=== PATIENT | female | born 1960 | race Caucasian/White ===

== ENCOUNTER 2024-07-30 12:50 | Inpatient (IN) | payer OTHER, MEDICAID ==
[~2024-07-30] VITALS: Ht 157.5 cm; Wt 94.9 kg
[~2024-07-30 12:50] MED LIST: DIVA500T13 PO; DULO1CAP6 PO; FURO20TA4 PO; GABA-339 PO; GABA800T97 PO; HYDR-4902 PO; MUPI2OIN2 EX; MUPI2OIN2 TOP; QUET400T13 PO; TEMA30CA PO
--- NOTE | 2024-07-30 13:10 | ECG ---
[facility] Test Date: 2024-07-30 Test Time: 13:00:01 Pat Name: MARGARITO HUMPHRIES Department: er Room: Gender: F Clinical Field Specialist: gp : 1960 Requested By: YADY GLASS Order Number: [id number] Reading MD: Jevon Velasquez Measurements Intervals [place] Rate: 98 P: 39 [place]: 122 QRS: 52 QRSD: 95 T: 117 QT: 376 QTc: 481 Interpretive Statements Sinus rhythm Low voltage, precordial leads Borderline repolarization abnormality Baseline wander in lead(s) II,III,aVF,V1,V2,V5 Electronically Signed On 07-30-2024 17:11:43 PDT by Jevon Velasquez Please click the below link to view image of tracing.
--- NOTE | 2024-07-30 13:48 | ED.PDOC ---
HPI (NEURO) HPI Comments 63-year-old female with a history of TIA, hypertension, diabetes brought in by family for evaluation of slurred speech and difficulty with word finding since around 2:30 a.m. today. Family states they noted that the patient has had hand tremors, chest discomfort and difficulty breathing, associated with a mild h eadache. Patient is actively having difficulty with speech and word finding, so history is limited from the patient. Family states the patient is normally not dysarthric and is ambulatory. Today, the patient has been feeling too weak to ambulate. Chief Complaint: General Weakness Time Seen by MD: 13:20 Reviewed Notes: Nurses Notes, Medications, Allergies Information Source: Patient, Relative Mode of Arrival: Wheelchair Severity: Moderate Dizziness/Weakness Severity: Unable to do activities Headache Severity: Moderate Timing: Hours Duration: Since onset, Hours Prehospital treatment: None Headache Quality: Aching Headache Location: Generalized Weakness Location: (R) Arm, (L) Arm Onset: At rest Circumstances: Spontaneous Symptoms: Weakness, Difficult speech, Change of vision Before: Normal During: LOC After: Headache History of: TIA Associated Signs and Symptoms: Headache, Chest Pain, Weakness, Blurred Vision Past Medical History PAST MEDICAL HISTORY: DM, HTN, TIA Surgical History (Other): Cosmetic Sx GENERAL SUPERINTENDENT History: No Pertinent GENERAL SUPERINTENDENT History Family History Family History: Reviewed,noncontributory to illness Social History Smoker: Non-Smoker Alcohol: Denies ETOH Use Drugs: Denies Drug Use Lives In: Home Constitutional: denies: chills, diaphoresis, fatigue, fever, malaise, sweats, weakness, others EENTM: reports: blurred vision; denies: double vision, ear bleeding, ear discharge, ear drainage, ear pain, ear ringing, eye pain, eye redness, hearing loss, mouth pain, mouth swelling, nasal discharge, nose bleeding, nose lisa estion, nose pain, photophobia, tearing, throat pain, throat swelling, voice changes, others Respiratory: reports: cough, wheezing; denies: hemoptysis, orthopnea, SOB at rest, shortness of breath, SOB with excertion, stridor, others Cardiovascular: reports: chest pain; denies: dizzy spells, diaphoresis, Dyspnea on exertion, edema, irregular heart beat, left arm pain, lightheadedness, palpitations, PND, syncope, others Gastrointestinal: denies: abdomen distended, abdominal pain, blood streaked bowels, constipated, diarrhea, dysphagia, difficulty swallowing, hematemesis, melena, nausea, poor appetite, poor fluid intake, rectal bleeding, rectal pain, vomiting, others Genitourinary: denies: abnormal vagina bleeding, burning, dyspareunia, dysuria, flank pain, frequency, hematuria, incontinence, pain, , vagina discharge, urgency, others Neurological: reports: headache, speech problems, weakness; denies: dizziness, fainting, left sided numbness, left sided weakness, numbness, paresthesia, pre- existing deficit, right sided numbness, right sided weakness, seizure, tingling, tremors, others Musculoskeletal: denies: back pain, gout, joint pain, joint swelling, muscle pain, muscle stiffness, neck pain, others Integumetry: denies: bruises, change in color, change in hair/nails, dryness, laceration, lesions, lumps, rash, wounds, others Allergic/Immunocompromised: denies: Difficulty Healing, Frequent Infections, Hives, Itching, others Hematologic/Lymphatic: denies: anemia, blood clots, easy bleeding, easy bruising, swollen glands, others Endocrine: denies: excessive hunger, excessive sweating, excessive thirst, excessive urination, flushing, intolerance to cold, intolerance to heat, unexplained weight gain, unexplained weight loss, others Psychiatric: denies: anxiety, bipolar disorder, depression, hopeless, panic disorder, schizophrenia, sleepless, suicidal, others All Other Systems: Reviewed and Negative Physical Exam General Appearance: No Apparent Distress, Obese HEENT: PERRL/EOMI, Other (No facial asymmetry.) Neck: Full Range of Motion, Normal Inspection Respiratory: Decreased Breath Sounds, No Accessory Muscle Use, Respiratory Distress (Mild tachypnea) Cardiovascular: No Edema, No JVD, Regular Rate/Rhythm Breast Exam: Deferred Gastrointestinal: Non Tender, Soft Genitalia: Deferred Pelvic: Deferred Rectal: Deferred Extremities: Normal inspection, Normal range of motion, Non-tender, No pedal edema Neurologic: Alert (Oriented x4), No Motor Deficits, Speech Problem (Dysarthria, difficulty with word finding) Cerebellar Function: NOT DONE Reflexes: NOT DONE Skin: Dry, Normal Color, Warm Lymphatic: NOT DONE EKG EKG : Comments Sinus rhythm, rate 98, normal IL and QRS interval, QTC 481, normal axis, normal QRS, nonspecific T change. Was a procedure done? Was a procedure done?: No Differential Diagnosis (SZ) Seizure: CVA/TIA, Hypocalcemia, Hypoglycemia, Hyponatremia, Hypoxemia, Idiopathic, Mass Lesion, Encephalopathy CVA: Davis's Palsy, Electrolyte Imbalance General Weakness: Dysrhythmia, Myocardial infarction Headache: Migraine, Epidural Hemorrhage, Intracerebral Hemorrhage, Subarachnoid Hemorrhage, Subdural Hemorrhage, Meningitis X-Ray, Labs, Meds, VS Vital Signs Date Time Temp Pulse Resp B/P (MAP) Pulse Ox O2 Delivery O2 Flow Rate FiO2 07/30/24 22:00 98.6 79 33 118/68 (85) 93 98.6 07/30/24 19:31 98.2 78 33 100/86 (91) 92 98.2 07/30/24 17:06 79 32 102/62 (75) 91 07/30/24 15:59 84 07/30/24 15:46 86 14 98 Nasal Cannula* 4 36 07/30/24 14:55 95 16 95 Non-Rebreather 10.0 07/30/24 14:55 97.6 95 16 139/70 (93) 61 97.6 07/30/24 14:52 19 95 Non-Rebreather 10 N/A 07/30/24 14:02 97.4 100 24 106/66 (79) 100 97.4 07/30/24 13:00 98 Lab Test 07/30/24 16:59 07/30/24 15:30 07/30/24 15:13 07/30/24 14:09 Range/Units Lactic Acid Level 1.2 0.4-2.0 mmol/L Troponin I High Sensitivity 120 *H 157 *H </=34 ng/L Blood Gas Specimen Type Arterial Blood Gas Sample Site Right radial Blood Gas Patient Temperature 37.0 Arterial Blood Date Drawn [id number] Arterial Blood pH 7.386 7.350-7.450 Arterial Blood Partial Pressure CO2 38.5 32.0-45.0 mmHg Arterial Blood Partial Pressure O2 80.2 L 83.0-108.0 mmHg Arterial Blood HCO3 22.6 21.0-28.0 mmol/L Arterial Blood Oxygen Saturation 94.6 94.0-98.0 % Arterial Blood Base Excess -2.1 L -2.0-3.0 mmol/L Arterial Blood Oxyhemoglobin 93.2 L 94.0-98.0 % Arterial Blood Carboxyhemoglobin 1.0 0.5-1.5 % Arterial Blood Methemoglobin 0.5 0.0-1.5 % Bernardo Test Yes Blood Gas Total Hemoglobin 14.90 12.0-16.0 g/dL Blood Gas Modality Mask - nrb FiO2 % 80.0 White Blood Count 19.1 H 4.4-10.8 10^3/uL Red Blood Count 4.75 4.0-5.20 10^6/uL Hemoglobin 14.1 12.2-16.2 g/dL Hematocrit 42.2 36.0-46.0 % Mean Corpuscular Volume 88.9 80.0-100.0 fL Mean Corpuscular Hemoglobin 29.7 28.0-32.0 pg Mean Corpuscular Hemoglobin Concent 33.4 32.0-36.0 g/dL Red Cell Distribution Width 15.5 H 11.8-14.3 % Platelet Count 352 140-450 10^3/uL Mean Platelet Volume 7.7 6.9-10.8 fL Neutrophils (%) (Auto) 37.0-80.0 % Lymphocytes (%) (Auto) 10.0-50.0 % Monocytes (%) (Auto) 0.0-12.0 % Basophils (%) (Auto) 0.0-2.0 % Neutrophils # (Auto) 1.6-8.6 10 ^3/uL Lymphocytes # (Auto) 0.4-5.4 10 ^3/uL Monocytes # (Auto) 0-1.3 10 ^3/uL Differential Total Cells Counted 100.0 100 Neutrophils % (Manual) 66 37.0-80.0 Band Neutrophils % (Manual) 12 Lymphocytes % (Manual) 14 10.0-50.0 Monocytes % (Manual) 8 0-12 Eosinophils % (Manual) 0 0-7 Basophils % (Manual) 0 0.0-2.0 Metamyelocytes % (manual) 0 Myelocytes % (Manual) 0 Promyelocytes % (Manual) 0 Blast Cells % (Manual) 0 Reactive Lymphocytes 0 Platelet Estimate Adequate Sodium Level 134 L 136-145 mmol/L Potassium Level 3.9 3.5-5.1 mmol/L Chloride Level 101 98-107 mmol/L Carbon Dioxide Level 26 20-31 mmol/L Anion Gap 7 5-15 Blood Urea Nitrogen 24 H 9-23 mg/dL Creatinine 1.56 H 0.550-1.02 mg/dL Glomerular Filtration Rate Calc 38 >90 mL/min BUN/Creatinine Ratio 15.4 10.0-20.0 Serum Glucose 135 H 74-106 mg/dL Calcium Level 9.6 8.7-10.4 mg/dL B-Type Natriuretic Peptide 266.24 0-100 pg/mL Current Medications Medications (Trade) Dose Ordered Sig/Rashard Route Start Time Stop Time Status Last Admin Acetaminophen (Tylenol Tablet Or Capsule) 1,000 mg ONCE ONCE PO 07/30/24 14:00 07/30/24 14:01 DC 07/30/24 14:22 Albuterol (Ventolin Medneb) 5 mg ONCE ONCE NEB 07/30/24 14:45 07/30/24 14:46 DC 07/30/24 14:52 Ipratropium [place] (Atrovent Medneb) 0.5 mg ONCE ONCE NEB 07/30/24 14:45 07/30/24 14:46 DC 07/30/24 14:52 Aspirin 325 mg ONCE ONCE PO 07/30/24 21:15 07/30/24 21:28 DC 07/30/24 22:03 PROCEDURE(s): HWOCT - HEAD WITHOUT CONTRAST REASON: dysarthria weakness ORDER NUMBER(s): [id number], ACCESSION NUMBER(s): [id number] EXAM: CT HEAD WITHOUT CONTRAST INDICATION: dysarthria weakness TECHNIQUE: CT of the head without intravenous contrast. Radiation Dose Information: CT Dose: CTDI volume is 65.38 mGy. Dose-length product is 1288.23 mGy*cm The dose indicators for CT are the volume Computed Tomography (CT) Dose Index (CTDIvol) and the Dose Length Product (DLP), and are measured in units of mGy and mGy-cm, respectively. These indicators are not patient dose, but values generated from the CT scanner acquisition factors. The report includes radiation exposure data for exposures received during this examination. COMPARISON: None FINDINGS: There is no evidence of acute intracranial hemorrhage, extra-axial collection, mass effect, midline shift, herniation or hydrocephalus. 6-7 mm low-density area in the external capsule on the right consistent with old lacunar infarct The ventricles, sulci and cisterns are age appropriate. The kim-white differentiation is intact. Patchy periventricular and subcortical white matter hypoattenuation is nonspecific but may be related to small vessel ischemic disease. The visualized paranasal sinuses and mastoid air cells are clear. The surrounding soft tissues and osseous structures are unremarkable. IMPRESSION: 1. No acute intracranial hemorrhage 2. 6 mm area of decreased attenuation right external capsule consistent with old lacunar infarct. No prior studies for comparison 3. No territorial ischemia noted. EDURE(s): CXRP - CHEST PORTABLE REASON: dysarthria, gen weak ORDER NUMBER(s): [id number], ACCESSION NUMBER(s): [id number] EXAM: XY CHEST PORTABLE Indication: dysarthria, gen weak Technique: Single frontal view of the chest was obtained Comparison: None FINDINGS: Lines and Tubes: None Lungs: Diffuse interstitial opacities Pleura: No effusion. No pneumothorax. Cardiomediastinal contours: Unremarkable Bones: No acute osseous abnormality. IMPRESSION: Diffuse interstitial opacities may reflect atypical infection or pulmonary edema. X-Ray, Labs, Meds, VS Comment 63-year-old female with a history of TIAs, hypertension and diabetes brought in by family for evaluation of dysarthria and difficulty with word finding, associated with generalized weakness Vitals remarkable for respiratory rate 32, oxygen saturation 91% on room air Exam remarkable for dysarthria, difficulty with word finding, tachypnea and diminished breath sounds Rhythm strip independently interpreted by me: Sinus rhythm, rate 98, no ectopy. CT head IMPRESSION: 1. No acute intracranial hemorrhage 2. 6 mm area of decreased attenuation right external capsule consistent with old lacunar infarct. No prior studies for comparison 3. No territorial ischemia noted. Chest x-ray IMPRESSION: Diffuse interstitial opacities may reflect atypical infection or pulmonary edema. CBC remarkable for WBC 19.1, metabolic panel remarkable for sodium 134, BNP 266.24, troponins 157 and 120 Patient treated with the following in the ED: Aspirin 325 mg p.o., albuterol 5 mg with Atrovent 0.5 mg nebulized, Tylenol 1 g p.o. On re-evaluation, respiratory status has improved and patient is saturating 94% on 3 L nasal cannula. Plan is to admit the patient for brain MRI, neuro evaluation, Cardiology evaluation and respiratory support as needed Time of 1ST Reevaluation: 13:50 Reevaluation 1ST: Unchanged Patient Education/Counseling: Diagnosis, Treatment, Prognosis Family Education/Counseling: Diagnosis, Treatment, Prognosis Departure 1 Departure Time of Disposition: 16:30 Impression: Primary Impression: CVA (cerebral vascular accident) Qualified Codes: I63.9 - Cerebral infarction, unspecified Additional Impressions: Non-STEMI (non-ST elevated myocardial infarction) Acute hypoxic respiratory failure Disposition: ADMITTED INPATIENT Admit to: [facility] Condition: Guarded Critical Care Note Critical Care Time?: No Stability Stability form required: No Heart Score Heart Score: Heart Score Response (Comments) Value History Slightly Suspicious 0 EKG Repolarization Disturb 1 Age 45-64 1 Risk Factors 1 or 2 risk factors 1 Troponin 1-2 x's Normal limit 1 Total 4 I personally scribed for YADY SALMERON MD ([email or web address]) on 07/30/24 at 13:48. Electronically submitted by Jorge Luis Rodriguez ([employer]). I personally scribed for YADY SALMERON MD ([email or web address]) on 07/30/24 at 17:46. Electronically submitted by Jorge Luis Rodriguez ([employer]). YADY SALMERON MD Jul 30, 2024 13:48
[2024-07-30 14:21] LABS: Hematocrit 42.2 % (36.0-46.0); Hemoglobin 14.1 g/dL (12.2-16.2); Mean Corpuscular Hemoglobin 29.7 pg (28.0-32.0); Mean Corpuscular Hgb Conc. 33.4 g/dL (32.0-36.0); Mean Corpuscular Volume 88.9 fL (80.0-100.0); Platelet Count (auto) 352 10^3/uL (140-450); Red Blood Cells 4.75 10^6/uL (4.0-5.20); Red Cell Distribution Width 15.5 % (11.8-14.3); White Blood Cell 19.1 10^3/uL (4.4-10.8)
[2024-07-30] MEDS: ACETAMINOPHEN 500 MG TAB or CAP PO ONE (14:22)
[2024-07-30 14:24] LABS: Basophils % (manual) 0 (0.0-2.0); Blast Cells 0; Eosinophils % (manual) 0 (0-7); Metamyelocytes % 0; Myelocytes % 0; Promyelocytes % 0; Reactive Lymphocytes 0
--- NOTE | 2024-07-30 14:32 | DVH ---
EXAM: XY CHEST PORTABLE Indication: dysarthria, gen weak Technique: Single frontal view of the chest was obtained Comparison: None FINDINGS: Lines and Tubes: None Lungs: Diffuse interstitial opacities Pleura: No effusion. No pneumothorax. Cardiomediastinal contours: Unremarkable Bones: No acute osseous abnormality. IMPRESSION: Diffuse interstitial opacities may reflect atypical infection or pulmonary edema.
[2024-07-30 14:33] LABS: Chloride 101 mmol/L (98-107); Potassium 3.9 mmol/L (3.5-5.1)
[2024-07-30 14:34] LABS: Anion Gap 7 (5-15); Carbon Dioxide 26 mmol/L (20-31)
[2024-07-30 14:35] LABS: Calcium 9.6 mg/dL (8.7-10.4); Sodium 134 mmol/L (136-145)
--- NOTE | 2024-07-30 14:39 | DVH ---
EXAM: CT HEAD WITHOUT CONTRAST INDICATION: dysarthria weakness TECHNIQUE: CT of the head without intravenous contrast. Radiation Dose Information: CT Dose: CTDI volume is 65.38 mGy. Dose-length product is 1288.23 mGy*cm The dose indicators for CT are the volume Computed Tomography (CT) Dose Index (CTDIvol) and the Dose Length Product (DLP), and are measured in units of mGy and mGy-cm, respectively. These indicators are not patient dose, but values generated from the CT scanner acquisition factors. The report includes radiation exposure data for exposures received during this examination. COMPARISON: None FINDINGS: There is no evidence of acute intracranial hemorrhage, extra-axial collection, mass effect, midline s hift, herniation or hydrocephalus. 6-7 mm low-density area in the external capsule on the right consistent with old lacunar infarct The ventricles, sulci and cisterns are age appropriate. The kim-white differentiation is intact. Patchy periventricular and subcortical white matter hypoattenuation is nonspecific but may be related to small vessel ischemic disease. The visualized paranasal sinuses and mastoid air cells are clear. The surrounding soft tissues and osseous structures are unremarkable. IMPRESSION: 1. No acute intracranial hemorrhage 2. 6 mm area of decreased attenuation right external capsule consistent with old lacunar infarct. No prior studies for comparison 3. No territorial ischemia noted.
[2024-07-30 14:40] LABS: BUN/Creatinine Ratio 15.4 (10.0-20.0); Blood Urea Nitrogen 24 mg/dL (9-23); Glucose 135 mg/dL (74-106)
[2024-07-30] MEDS: ALBUTEROL SULF 2.5 MG/0.5ML(0.5%) NEB SOLN NEB ONE (14:52)
[2024-07-30] MEDS: IPRATROPIUM BROM 0.5 MG/2.5ML INH SOL NEB ONE (14:52)
[2024-07-30 15:01] LABS: Band Neutrophils % (manual) 12; Lymphocytes % (manual) 14 (10.0-50.0); Monocytes % (manual) 8 (0-12)
[2024-07-30 15:02] LABS: Platelet Estimate Adequate
[2024-07-30 15:24] LABS: Base Excess -2.1 mmol/L (-2.0-3.0)
[2024-07-30 15:46] VITALS: PULSE 86; RESP 14; O2SAT 98
[2024-07-30] MEDS: ASPirin 325 MG TAB PO ONE (22:03)
--- NOTE | 2024-07-30 22:32 | DVHHPRES ---
History of Present Illness Resident Creating Document: PATO ROBLERO RESIDENT History of Present Illness Ms Alvarez is a 63-year-old female with PMHx of hypertension, diabetes mellitus type 2, TIA, ? History of cva who presented to the ER with a chief complaint of slurred speech, shortness of breath and cough. Patient is A&O x3, with slurred speech and is taking time to respond to questions. During my evaluation, patient is on a rebreather mask. No family available at bedside. Per chart review, patient has been experiencing slurred speech and difficulty with word finding which started around 2:30 in the morning of 07/30. Patient has been experiencing shortness of breaths associated with cough and pleuritic chest pain. She has smoked a pack a day for the past 40 years. She is experiencing difficulty with fine motor activities such as apraxia and agraphia, patient could not write has been him or draw clock. On arrival to the ER, patient was tachypneic and required oxygen supplementation via non-rebreather mask during my evaluation patient was afebrile, normotensive, tachypneic 30 per minute and saturating 98 on 8 L non-rebreather mask. Head CT was completed which showed 6 mm right external capsule old lacunar infarct. Chest x-ray shows bilateral opacities. Troponin downtrending 157, 120. Past medical history: Hypertension, diabetes mellitus type 2, TIA, questionable history of CVA Social history: Lives with dad and ex-. Smokes a pack a day for the past 40 years, drinks socially, denies illicit drug use Patient seen and examined in the ER. Patient has slurred speech. Patient is able to read without difficulty. Can not draw clock or write her name. Review of Systems Respiratory: Cough, Shortness of breath, SOB with excertion, Pleuritic Pain Neurological: Change in speech Allergies: Coded Allergies: NO KNOWN ALLERGIES (Unverified , 07/30/24) Exam Vital Signs Vital Signs Date Time Temp Pulse Resp B/P (MAP) Pulse Ox O2 Delivery O2 Flow Rate FiO2 07/30/24 19:31 98.2 78 33 100/86 (91) 92 98.2 07/30/24 15:46 Nasal Cannula* 4 36 Exam Obese female patient lying in bed, in no acute distress. Patient has slurred speech. Patient is able to read without difficulty. Can not draw clock or write her name. General: Obese, afebrile, palor, mucosae are moist Cardiovascular: Regular S1 and S2. No murmurs, gallops or rubs. No JVD elevation. 2+ pitting edema bilaterally. Palpable chest tenderness. Respiratory: Saturating 98 on 8 L non-rebreather. Inspiratory crackles and expiratory wheezing heard on auscultation. Abdomen: Soft, tender, nondistended, normoactive bowel sounds, no rebound tenderness, no organomegaly, no masses Genitourinary: Deferred MSK/skin: Mobilizes 4 limbs. Skin is dry and warm Neurological: No motor, no sensitive deficits, normal speech. Pupils are isocoric and reactive. Psych/Mental Status: A/Ox3 Labs/Xrays Labs Test 07/30/24 16:59 07/30/24 15:30 07/30/24 15:13 07/30/24 14:09 Range/Units Lactic Acid Level 1.2 0.4-2.0 mmol/L Troponin I High Sensitivity 120 *H </=34 ng/L Blood Gas Specimen Type Arterial Blood Gas Sample Site Right radial Blood Gas Patient Temperature 37.0 Arterial Blood Date Drawn [id number] Arterial Blood pH 7.386 7.350-7.450 Arterial Blood Partial Pressure CO2 38.5 32.0-45.0 mmHg Arterial Blood Partial Pressure O2 80.2 L 83.0-108.0 mmHg Arterial Blood HCO3 22.6 21.0-28.0 mmol/L Arterial Blood Oxygen Saturation 94.6 94.0-98.0 % Arterial Blood Base Excess -2.1 L -2.0-3.0 mmol/L Arterial Blood Oxyhemoglobin 93.2 L 94.0-98.0 % Arterial Blood Carboxyhemoglobin 1.0 0.5-1.5 % Arterial Blood Methemoglobin 0.5 0.0-1.5 % Bernardo Test Yes Blood Gas Total Hemoglobin 14.90 12.0-16.0 g/dL Blood Gas Modality Mask - nrb FiO2 % 80.0 White Blood Count 19.1 H 4.4-10.8 10^3/uL Red Blood Count 4.75 4.0-5.20 10^6/uL Hemoglobin 14.1 12.2-16.2 g/dL Hematocrit 42.2 36.0-46.0 % Mean Corpuscular Volume 88.9 80.0-100.0 fL Mean Corpuscular Hemoglobin 29.7 28.0-32.0 pg Mean Corpuscular Hemoglobin Concent 33.4 32.0-36.0 g/dL Red Cell Distribution Width 15.5 H 11.8-14.3 % Platelet Count 352 140-450 10^3/uL Mean Platelet Volume 7.7 6.9-10.8 fL Neutrophils (%) (Auto) 37.0-80.0 % Lymphocytes (%) (Auto) 10.0-50.0 % Monocytes (%) (Auto) 0.0-12.0 % Basophils (%) (Auto) 0.0-2.0 % Neutrophils # (Auto) 1.6-8.6 10 ^3/uL Lymphocytes # (Auto) 0.4-5.4 10 ^3/uL Monocytes # (Auto) 0-1.3 10 ^3/uL Differential Total Cells Counted 100.0 100 Neutrophils % (Manual) 66 37.0-80.0 Band Neutrophils % (Manual) 12 Lymphocytes % (Manual) 14 10.0-50.0 Monocytes % (Manual) 8 0-12 Eosinophils % (Manual) 0 0-7 Basophils % (Manual) 0 0.0-2.0 Metamyelocytes % (manual) 0 Myelocytes % (Manual) 0 Promyelocytes % (Manual) 0 Blast Cells % (Manual) 0 Reactive Lymphocytes 0 Platelet Estimate Adequate Sodium Level 134 L 136-145 mmol/L Potassium Level 3.9 3.5-5.1 mmol/L Chloride Level 101 98-107 mmol/L Carbon Dioxide Level 26 20-31 mmol/L Anion Gap 7 5-15 Blood Urea Nitrogen 24 H 9-23 mg/dL Creatinine 1.56 H 0.550-1.02 mg/dL Glomerular Filtration Rate Calc 38 >90 mL/min BUN/Creatinine Ratio 15.4 10.0-20.0 Serum Glucose 135 H 74-106 mg/dL Calcium Level 9.6 8.7-10.4 mg/dL B-Type Natriuretic Peptide 266.24 0-100 pg/mL Assessment/Plan Assessment/Plan Agraphia and apraxia, Rule out acute stroke Acute hypoxic respiratory failure probably secondary to probable aspiration pneumonia Probable congestive heart failure-new onset Sepsis secondary to aspiration pneumonia NSTEMI, type 1 versus type 2 HO, likely vasomotor mediated Hypertension Questionable history of stroke Diabetes mellitus-A1c pending Morbid obesity Head CT completed, showed No acute intracranial hemorrhage. 6 mm area of decreased attenuation right external capsule consistent with old lacunar infarct. No prior studies for comparison Plan: Follow up with the MRI brain Neurology consulted Started IV vancomycin and IV Zosyn 07/31, nebulized treatment Aspirin 325 mg administered by the ER, continue aspirin 81 mg and atorvastatin 40 mg HS BNP 2 6 6. Follow up with echocardiogram, lower extremity Doppler Follow up with COVID, influenza, MRSA, sputum culture and blood culture Follow up with urine studies Mild ISS Diet NPO given swallow eval pending Plan discussed with patient in which all questions have been answered Goals of care discussed with patient for more than 20 minutes, DNI but okay to do compression Case discussed with Dr. Interiano Plan discussed with: Patient Date of Service: Jul 30, 2024 Billing Provider: NATHALIE INTERIANO MD Common Visit Codes: [id number] INP/OBS CARE (HIGH) PATO ROBLERO RESIDENT Jul 30, 2024 22:32
[2024-07-30 22:40] VITALS: PULSE 79; RESP 33; O2SAT 93
[2024-07-31] VITALS (8 sets, daily range): BP systolic 122–131; BP diastolic 52–95; PULSE 82–91; RESP 16–22; TEMP 97.1–97.9; O2SAT 90–99
[2024-07-31] MEDS ORDERED: DEXTROSE (50%) 50ML SYRG IV PRN (01:30)
[2024-07-31] MEDS ORDERED: VANCOMYCIN PER PHARMACY 0 MG IV SCH (01:30)
[2024-07-31] MEDS ORDERED: PIPERACILLIN-TAZOB 3.375GM 100 ML IV SCH (02:00)
[2024-07-31 02:12] LABS: Rapid Influenza A Negative (Negative); Rapid Influenza B Negative (Negative)
[2024-07-31 02:13] LABS: COVID19 ANTIGEN SOFIA FIA NEGATIVE (NEGATIVE)
[2024-07-31] MEDS ORDERED: VANCOMYCIN 1GM/250ML KIT 250 ML IV SCH (02:30)
[2024-07-31] MEDS: CEFEPIME 1GM/ 50ML 50 ML IV SCH (02:48)
--- NOTE | 2024-07-31 04:28 | DVH ---
Clinical History: Rule out DVT Comparison: None Technique: Duplex Doppler evaluation of the deep venous system of the right or left lower extremity from the com mon femoral vein to the popliteal vein including color Doppler and spectral/pulsed waveform analysis was performed. Findings: The common femoral vein demonstrates appropriate compressibility and waveform variability. There is compressibility/patency of the great saphenous vein at the proximal thigh. The femoral vein demonstrates appropriate compressibility and waveform variability. The deep femoral vein demonstrates appropriate compressibility and waveform variability. The popliteal vein demonstrates appropriate compressibility and waveform variability. There is normal compressibility at the tibioperoneal trunk. Impression: 1. No right or left deep venous thrombosis. 2. If clinical concern/symptoms persist or worsen, short-interval follow-up study is suggested.
[2024-07-31] MEDS: VANCOMYCIN 1GM/250ML KIT 250 ML IV SCH (05:35)
[2024-07-31 05:36] LABS: Basophils # (auto) 0 10 ^3/uL (0-0.2); Basophils % (auto) 0.2 % (0.0-2.0); Eosinophils # (auto) 0.1 10 ^3/uL (0-0.8); Eosinophils % (auto) 0.4 % (0.0-7.0); Hematocrit 38.7 % (36.0-46.0); Hemoglobin 12.9 g/dL (12.2-16.2); Lymphocytes # (auto) 1.4 10 ^3/uL (0.4-5.4); Lymphocytes % (auto) 11.3 % (10.0-50.0); Mean Corpuscular Hgb Conc. 33.4 g/dL (32.0-36.0); Mean Corpuscular Volume 89.7 fL (80.0-100.0); Monocytes # (auto) 0.7 10 ^3/uL (0-1.3); Monocytes % (auto) 5.3 % (0.0-12.0); Neutrophils # (auto) 10.4 10 ^3/uL (1.6-8.6); Neutrophils % (auto) 82.8 % (37.0-80.0); Platelet Count (auto) 285 10^3/uL (140-450); Red Blood Cells 4.32 10^6/uL (4.0-5.20); Red Cell Distribution Width 15.4 % (11.8-14.3); White Blood Cell 12.5 10^3/uL (4.4-10.8)
[2024-07-31 05:56] LABS: INR 1.07 (0.9-1.15); Partial Thromboplastin Time 35.2 SEC (24.5-34.5); Prothrombin Time 11.3 sec (9.3-11.8)
[2024-07-31 06:00] LABS: Alanine Aminotransferase 33 U/L (7-40); Albumin 3.9 g/dL (3.2-4.8); Alkaline Phosphatase 71 U/L (46-116); Anion Gap 4 (5-15); Bilirubin, Total 0.5 mg/dL (0.2-1.0); Calcium 9.1 mg/dL (8.7-10.4); Carbon Dioxide 31 mmol/L (20-31); Chloride 100 mmol/L (98-107); Magnesium 2.4 mg/dL (1.6-2.6); Total Protein 6.3 g/dL (5.7-8.2)
[2024-07-31 06:05] LABS: Blood Urea Nitrogen 26 mg/dL (9-23); Glucose 111 mg/dL (74-106); Sodium 135 mmol/L (136-145)
[2024-07-31 06:11] LABS: Aspartate Aminotransferase 130 U/L (13-40)
[2024-07-31] MEDS: ACCU-CHEK COMFORT CURVE STRIP VI SCH (06:19)
[2024-07-31] MEDS: InsuLIN REG 1unit/0.01ml Soln (100units/ml) SC SCH (06:24)
--- NOTE | 2024-07-31 07:22 | BSKYNEURO ---
[place] [facility] Note # Demographics Consult Type: General Neurology Patient Location: Inpatient First Name: Mona Last Name: Antonio Date of : 1960 Age: 63 Gender: Female Facility: [facility] Time of Initial Page (): 07/31/2024 06:01 Time of Return Call (): 07/31/2024 06:01 # HPI History: 63 y/o F with Hx of HTN and DM admitted 07/30 with SOB and slurred speech. Labs showed elevated troponin c/w NSTEMI. Speech is currently normal. # Exam Time of Exam (): 07/31/2024 07:14 Mental Status: - awake - alert and oriented x 3 - follows commands Language: - no dysarthria Cranial Nerves: - extra ocular movements intact - no facial droop Motor: - no drift Sensory: - normal sensation Cerebellar: - normal finger nose - normal heel merino # Data Head CT: negative for acute changes Other Imaging: EKG SR # Assessment Impression: - Transient Ischemic Attack # Plan Labs: - lipid panel Imaging: (urgency: routine): - CT Angiogram Head and CT Angiogram Neck - MRI Brain without contrast Diagnostic Test: - echo without bubble study Medication: - aspirin 81 mg daily DVT Prophylaxis: - enoxaprin (Lovenox) 40 mg subcutaneously daily Other: - If patient has any neurological deterioration please call me back immediately - LDL < 70 - telemetry monitoring # Logistics Attestation of consult completion: The patient is located at: [facility]. Facility staff participated in the visit. I performed this telemedicine visit from my offsite office utilizing interactive 2 way audio and visual telecommunication technology. Total time spent in telemedicine encounter: I spent 30 minutes reviewing clinical data and/or imaging, obtaining history, examining the patient, communicating with the onsite care team, and in preparation of this report. # Demographics First Name: Mona Last Name: Antonio Facility: [facility] Electronically signed at 07/31/2024 07:21 () by DO Anuj Reid ELIZABETH A DO July 31, 2024 07:22
--- NOTE | 2024-07-31 11:05 | DVH ---
EXAMINATION: MRI BRAIN HEAD WO CONTRAST INDICATION: Rule out acute stroke COMPARISON: CT scan of the head performed on 07/30/2024 TECHNIQUE: Multiplanar, multisequence magnetic resonance imaging of the brain was performed without the use of i ntravenous contrast. FINDINGS: No evidence of acute or remote infarct. No intracranial hemorrhage. No mass effect. There is periventricular/deep white matter T2/FLAIR hyperintensity is nonspecific, but most commonly associated with chronic microvascular disease. The ventricles and sulci are normal in size for age. Clear basal cisterns. Flow voids in the major intracranial vessels are maintained. No abnormality of the orbits. Paranasal sinuses and mastoid air cells are clear. No abnormality of the visualized osseous structures and extracranial soft tissues. IMPRESSION: 1. No acute infarct, intracranial hemorrhage, mass effect, or hydrocephalus.
[2024-07-31] MEDS: ASPirin 81 mg TAB PO SCH (11:34)
[2024-07-31] MEDS: ENOXAPARIN SOD 40 MG/0.4 ML SYRINGE SC SCH (11:35)
--- NOTE | 2024-07-31 18:18 | DVHPN2 ---
Subjective Still having dysarthria but improved, having difficulties findings words Changes from previous H/P or p: No Changes Respiratory: Cough, Shortness of breath, SOB with excertion, Pleuritic Pain Objective Vitals Vital Signs Date Time Temp Pulse Resp B/P (MAP) Pulse Ox O2 Delivery O2 Flow Rate FiO2 07/31/24 17:30 97.9 85 22 122/95 (104) 90 97.9 07/31/24 08:00 Non-Rebreather 13 N/A Intake/Output Intake and Output 07/31/24 07:00 Intake Total 50 ml Balance 50 ml Intake IV Total 50 ml General Appearance: Alert, Oriented X3, Cooperative Lungs: Clear to auscultation, Normal air movement Neuro: Other (Still having dysarthria, able to speak but having difficulties findings words) Medications Current Medications Medications Dose Ordered Sig/Rashard Route Start Time Stop Time Status Last Admin Dose Admin Aspirin 81 mg DAILY PO 07/31/24 10:00 07/31/24 11:34 81 MG Atorvastatin Calcium 40 mg HS PO 07/31/24 22:00 Vancomycin HCl 0 ml @ 0 mls/hr UD IV 07/31/24 01:30 Enoxaparin Sodium 40 mg DAILY SC 07/31/24 10:00 07/31/24 11:35 40 MG Diagnostic Test (Pha) 1 strip ACHS 07/31/24 07:00 07/31/24 17:00 1 STRIP Insulin Human Regular ACHS SC 07/31/24 07:00 Dextrose 50 ml UD PRN IV 07/31/24 01:30 Cefepime HCl 50 ml @ 12.5 mls/hr Q12HR IV 07/31/24 02:00 07/31/24 11:37 12.5 MLS/HR Vancomycin HCl 100 ml @ 100 mls/hr Q18H IV 08/01/24 00:00 Laboratory Results Laboratory Tests 07/31/24 04:50 Chemistry Test 07/31/24 04:50 Albumin 3.9 g/dL (3.2-4.8) Calcium Level 9.1 mg/dL (8.7-10.4) Magnesium Level 2.4 mg/dL (1.6-2.6) Total Protein 6.3 g/dL (5.7-8.2) Coagulation Test 07/31/24 04:50 Prothrombin Time 11.3 sec (9.3-11.8) Prothrombin Time INR 1.07 (0.9-1.15) Activated Partial Thromboplast Time 35.2 SEC (24.5-34.5) H LFT Test 07/31/24 04:50 Alanine Aminotransferase (ALT) 33 U/L (7-40) Alkaline Phosphatase 71 U/L (46-116) Aspartate Amino Transferase (AST) 130 U/L (13-40) H Total Bilirubin 0.5 mg/dL (0.2-1.0) HgA1c, TSH Test 07/31/24 04:50 Hemoglobin A1c 5.5 % A1C (<5.7) Thyroid Stimulating Hormone (TSH) 2.94 uIU/mL (0.55-4.78) Microbiology Microbiology Date/Time Source Procedure Growth Status 07/31/24 01:42 Nose MRSA Screen - Final Complete 07/30/24 16:59 Blood Blood Culture - Preliminary NO GROWTH AFTER 24 HOURS OF INCUBATION. Resulted Assessment/Plan Assessment/Plan Agraphia and apraxia, Rule out acute stroke Acute hypoxic respiratory failure probably secondary to probable aspiration pneumonia Probable congestive heart failure-new onset Sepsis secondary to aspiration pneumonia NSTEMI, type 1 versus type 2 HO, likely vasomotor mediated Hypertension Questionable history of stroke Diabetes mellitus-A1c pending Morbid obesity Head CT completed, showed No acute intracranial hemorrhage. 6 mm area of decreased attenuation right external capsule consistent with old lacunar infarct. No prior studies for comparison MRI pending Plan: MRI pending Neurology consulted Started IV vancomycin and IV Zosyn 07/31, nebulized treatment Aspirin 325 mg administered by the ER, continue aspirin 81 mg and atorvastatin 40 mg HS BNP 2 6 6. Follow up with echocardiogram, lower extremity Doppler Follow up with COVID, influenza, MRSA, sputum culture and blood culture Follow up with urine studies Mild ISS PT eval Plan discussed with patient in which all questions have been answered Plan discussed with: Patient My Orders Orders - KATI SHABAZZ MD Procedure Category Date Status Time Regular Diet DIET 07/31/24 Transmitted Dinner Pt Request For Service PT 07/31/24 Logged 14:12 Date of Service: July 31, 2024 Billing Provider: KATI SHABAZZ MD Common Visit Codes: [id number] INP/OBS CARE(HIGH) KATI SHABAZZ MD July 31, 2024 18:18
[2024-07-31] MEDS: ATORVASTATIN 20 MG TAB PO SCH (21:42)
[2024-07-31] MEDS: ONDANSETRON HCL 4 MG/2 ML VIAL IV PRN (22:42)
[2024-08-01] VITALS (7 sets, daily range): BP systolic 126–165; BP diastolic 76–90; PULSE 70–90; RESP 15–18; TEMP 97.8–98.2; O2SAT 93–99
[2024-08-01] MEDS ORDERED: VANCOMYCIN 750MG KIT 100 ML IV SCH
[2024-08-01] MEDS: VANCOMYCIN 750MG KIT 100 ML IV SCH (02:00)
[2024-08-01 07:40] LABS: Basophils # (auto) 0 10 ^3/uL (0-0.2); Basophils % (auto) 0.4 % (0.0-2.0); Eosinophils # (auto) 0.1 10 ^3/uL (0-0.8); Eosinophils % (auto) 0.7 % (0.0-7.0); Hematocrit 40.8 % (36.0-46.0); Hemoglobin 13.9 g/dL (12.2-16.2); Lymphocytes # (auto) 1.3 10 ^3/uL (0.4-5.4); Lymphocytes % (auto) 13.3 % (10.0-50.0); Mean Corpuscular Hemoglobin 30.4 pg (28.0-32.0); Mean Corpuscular Volume 89.6 fL (80.0-100.0); Monocytes # (auto) 0.7 10 ^3/uL (0-1.3); Monocytes % (auto) 7.3 % (0.0-12.0); Neutrophils # (auto) 7.8 10 ^3/uL (1.6-8.6); Neutrophils % (auto) 78.3 % (37.0-80.0); Nucleated Red Blood Cells % 0.1 %; Platelet Count (auto) 322 10^3/uL (140-450); Red Blood Cells 4.55 10^6/uL (4.0-5.20); White Blood Cell 9.9 10^3/uL (4.4-10.8)
[2024-08-01] MEDS ORDERED: ATOR20TA50 PO (12:36)
[2024-08-01] MEDS ORDERED: ASPI-325 PO (12:36)
[2024-08-01] MEDS ORDERED: PRED20TA2 PO (12:36)
[2024-08-01] MEDS ORDERED: ALBUAER3 IN (12:36)
[2024-08-01] MEDS ORDERED: AUG875T PO (12:36)
--- NOTE | 2024-08-01 13:14 | DVHSR ---
APPROVED REPORT EXAM: Two-dimensional and M-mode echocardiogram with Doppler and color Doppler. Blood Pressure: 131/73 mmHg INDICATION Peripheral Edema Wheezing RISK FACTORS Height: 5'2", Weight: 209 DIMENSIONS LVDd3.9 (3.8-5.7cm)LA (2D)3.0 (1.9-4.0cm)Aortic Root (2.0-3.7cm) LVDs2.5 (2.5-4.0cm)LA (MM) (1.9-4.0cm)Aortic Cusp Exc (1.5-2.0cm) EF (%) 64.0 (55-70%)Rt. Atrium3.5 (1.9-4.0cm)Asc. Aorta cm IVSd1.0 (0.7-1.1cm)RV (D) (1.8-2.4cm) Mitral Valve MitralMitral Stenosis E wave0.57m/sMV Mean GR.mmHg A wave0.85m/sMV Peak GR.mmHg E/A ratio0.72D MVAcm2 DECEL [id number] 1/2 Timems Aortic Valve Aortic ValveAortic Stenosis V11.37m/Karo Mean GR.6mmHg V21.57m/Karo Peak GR.10mmHg LVOT Diameter2.0 (1.8-2.4cm)Doppler AVA2.74cm2 Tricuspid Valve TR Velocity2.29m/s [id number] Other Information Quality : Technically LimitedRhythm : Technically limited study due to patient position. Conclusion limited study lvef 60% by visual estimate normal rv function left atrium enlaged mild no severe valve abnormalities noted
== END 2024-08-01 15:30 | disposition home or self-care (01) | DRG 871 ==
LOC: ER 12:50 → OVERFLOW 22:31 → TELE-WESTW 07-31 04:05
PROVIDERS: ADMIT Hospitalist; ATTEND Hospitalist
DX: A41.9 Sepsis, unspecified organism (principal); I21.A1 Myocardial infarction type 2; N17.0 Acute kidney failure with tubular necrosis; J69.0 Pneumonitis due to inhalation of food and vomit; J96.01 Acute respiratory failure with hypoxia; J18.9 Pneumonia, unspecified organism; I50.9 Heart failure, unspecified; E66.01 Morbid (severe) obesity due to excess calories; E11.9 Type 2 diabetes mellitus without complications; I11.0 Hypertensive heart disease with heart failure; Z86.73 Personal history of transient ischemic attack (TIA), and cerebral infarction without residual deficits; Z68.38 Body mass index [BMI] 38.0-38.9, adult; Z79.899 Other long term (current) drug therapy
CPT/HCPCS: 36415; 36600; 70450; 70551; 71045; 80048; 80053; 82306; 82565; 82607; 82805; 82962; 83036; 83605; 83735; 83880; 84443; 84484; 85007; 85025; 85027; 85610; 85730; 87040; 87081; 87426; 87804; 93005; 93306; 93970; 94640; G0378; J2405